=== PATIENT | female | born 1945 | race Caucasian/White ===

== ENCOUNTER 2024-04-17 10:04 | Emergency (ER) | payer MEDICARE, SELFPAY ==
--- NOTE | ~2024-04-17 | CT_ITS ---
EXAMINATION: CT head/brain wo IV con (accession [id number]), CT cervical spine wo IV con (accession [id number]) INDICATION INFORMATION: Fall, +head strike COMPARISON: None TECHNIQUE: Separate noncontrast CT examinations of the head and cervical spine were performed. Coronal and sagittal reformats were obtained at the acquisition workstation. DLP: 833 mGy-cm FINDINGS: HEAD: There is no evidence of acute intracranial hemorrhage or edematous large vessel territorial infarction. No abnormal mass effect or midline shift is seen. Dove to white matter differentiation is well preserved. No abnormal extra-axial fluid collections are identified. Commensurate prominence of the ventricles and sulci is compatible with generalized parenchymal volume loss. There is patchy periventricular and subcortical white matter hypoattenuation, most likely representing microangiopathic disease. Frontal soft tissue swelling and scalp hematoma. No acute calvarial fracture.. Paranasal sinuses and mastoid air cells are well-aerated. . CERVICAL SPINE: No evidence of acute fracture or traumatic subluxation of the cervical spine. Vertebral body heights and intervertebral disc spaces are maintained. The atlantoaxial and atlantooccipital articulations are intact. No prevertebral soft tissue swelling. The visualized lung apices are clear. CT/CT head/brain wo IV con IMPRESSION: No CT evidence of acute intracranial hemorrhage or edematous territorial infarction. Soft tissue swelling and scalp hematoma in the frontal region. No CT evidence of acute cervical spine fracture or malalignment. Electronically signed by: Karthik Kwok MD 04/17/2024 01:15 PM JOSE
--- NOTE | ~2024-04-17 | XR_ITS ---
EXAMINATION: XR ANKLE, RIGHT CLINICAL INFORMATION: fall twisted ankle COMPARISON: None available. TECHNIQUE: AP, lateral, and mortise views of the right ankle. FINDINGS: No fracture. Alignment is anatomic. No erosions. Joint spaces are maintained. Mild soft tissue swelling overlying the lateral malleolus. XR/XR ankle RT min 3V IMPRESSION: Mild soft tissue swelling overlying the lateral malleolus. No acute fractures. Electronically signed by: Cinthya Barrera MD 04/17/2024 01:29 PM EST NABIL
--- NOTE | ~2024-04-17 | CT_ITS ---
EXAMINATION: CT head/brain wo IV con (accession [id number]), CT cervical spine wo IV con (accession [id number]) INDICATION INFORMATION: Fall, +head strike COMPARISON: None TECHNIQUE: Separate noncontrast CT examinations of the head and cervical spine were performed. Coronal and sagittal reformats were obtained at the acquisition workstation. DLP: 833 mGy-cm FINDINGS: HEAD: There is no evidence of acute intracranial hemorrhage or edematous large vessel territorial infarction. No abnormal mass effect or midline shift is seen. Dove to white matter differentiation is well preserved. No abnormal extra-axial fluid collections are identified. Commensurate prominence of the ventricles and sulci is compatible with generalized parenchymal volume loss. There is patchy periventricular and subcortical white matter hypoattenuation, most likely representing microangiopathic disease. Frontal soft tissue swelling and scalp hematoma. No acute calvarial fracture.. Paranasal sinuses and mastoid air cells are well-aerated. . CERVICAL SPINE: No evidence of acute fracture or traumatic subluxation of the cervical spine. Vertebral body heights and intervertebral disc spaces are maintained. The atlantoaxial and atlantooccipital articulations are intact. No prevertebral soft tissue swelling. The visualized lung apices are clear. CT/CT cervical spine wo IV con IMPRESSION: No CT evidence of acute intracranial hemorrhage or edematous territorial infarction. Soft tissue swelling and scalp hematoma in the frontal region. No CT evidence of acute cervical spine fracture or malalignment. Electronically signed by: Karthik Kwok MD 04/17/2024 01:15 PM JOSE
--- NOTE | ~2024-04-17 | XR_ITS ---
EXAMINATION: XR KNEE, RIGHT CLINICAL INFORMATION: Fall COMPARISON: None available. TECHNIQUE: Four views of the right knee. FINDINGS: No fracture or joint effusion. Alignment is anatomic. Mild medial compartment joint space narrowing. No abnormal soft tissue calcification. XR/XR knee RT 4V IMPRESSION: Minimal degenerative disease. Electronically signed by: Cinthya Barrera MD 04/17/2024 01:30 PM EST
[2024-04-17 10:14] VITALS: BP 167/72; BP 170/100; PULSE 100; PULSE 109; RESP 18; TEMP 36.6; O2SAT 18; O2SAT 97; BMI 25.2
[2024-04-17 10:22] VITALS: BP 167/72; PULSE 100; RESP 18; TEMP 36.6; O2SAT 97
--- NOTE | 2024-04-17 10:36 | ED_ITS ---
HPI - Fall General Chief Complaint: Fall Stated Complaint: fall Time Seen by Provider: 04/17/24 10:10 Source: patient, EMS, RN notes reviewed and old records reviewed Mode of arrival: EMS History of Present Illness ED Provider: Inez Jefferson PA-C HPI Narrative: 78-year-old female with no significant past medical history presenting to the ED complaining of right knee/ankle pain and head injury s/p mechanical trip and fall in the basement [employer]. Patient states she was switching over laundry when tripped over a cable/cord and face planted cement floor. Denies anticoagulation use or LOC. Denies symptoms prior to fall. States landed on right knee and twisted ankle. Was minimally ambulatory after incident with pivot with EMS. Denies neck/back pain, CP/SOB, abdominal pain, nausea/vomiting Related Data Allergies Allergy/AdvReac Type Severity Reaction Status Date / Time amoxicillin Allergy Rash Verified 04/17/24 10:20 Review of Systems Review of Systems: Yes all other systems are reviewed and are negative Constitutional: Constitutional: Reports as per HPI Neurologic: Denies Abnormal speech present FOR[facility] Past Medical History Attestation statement: The following information was validated with the patient. Source: old records reviewed Social History Social History Alcohol intake: never Smoked in Last 30 Days: No Use of substances other than those prescribed or required for medical reasons: No Advance Directives: No Advance Directives Information Provided: Yes Do you have a plan to hurt others: No Plan Physical Exam Vital Signs: Vital Signs: Last Vital Signs Temp 97.8 F 04/17/24 10:22 Pulse 100 04/17/24 10:22 Resp 18 04/17/24 10:22 BP 167/72 H 04/17/24 10:22 Pulse Ox 97 04/17/24 10:22 O2 Del Method Room Air 04/17/24 10:22 BMI result Body Mass Index 25.2 Const: General: cooperative, healthy appearing and no acute distress Orientation/consciousness: patient oriented x3 Limitations: no limitations HEENT: Other: + hematoma noted to right forehead. Sup erficial abrasion to nasal bridge with mild nasal swelling. No epistaxis or septal hematoma Head: Yes normal to inspection, Yes atraumatic, No Solo's sign and No raccoon eyes Ears: hearing grossly normal bilaterally General nose exam: Normal external nose present Face and sinus: Yes normal facial exam Mouth: Normal oral and palatal mucosa present and no drooling Throat: Yes posterior oropharynx normal Eyes: General: appearance normal, both eyes and all related structures P upils: Equal, round and reactive pupils present EOM: EOMs intact bilaterally Neck: Other: C-collar in place Neck: Yes normal visual inspection and Yes no meningeal signs Resp: Effort & Inspection: normal respiratory effort and no respiratory distress Auscultation: clear to auscultation bilaterally Cardio: Rate: regular rate Heart sounds: S1 normal heart sound present and S2 normal heart sound present GI: Inspection: Yes normal to inspection Palpation (GI): Soft to palpation, nontender, no guarding and not rigid Back/Spine/Pelvis: Other: No midline cervical/thoracic/lumbar spinous tenderness/step-off or deformity Skin: Rashes: no rashes Wounds: no wounds Neuro: General: patient oriented x3, tone normal, moves all extremities, no meningeal signs, no focal motor deficits and CN's II-XI intact bilaterally Cranial nerves: Yes CN's II-XII intact bilaterally, Yes Equal, round and reactive pupils present and Yes Bilaterally intact EOM present Cognition (Neuro): normal cognition Speech: No Abnormal speech present Motor exam (neuro): 5/5 motor strength present throughout Extrem: Other: Right knee with mild swelling and ecchymosis. Nontender. Full range of motion intact. Right ankle without appreciable swelling or tenderness. NV intact distally Course Course Course Narrative: 1320--CT head/brain wo IV con/CT cervical spine wo IV con IMPRESSION: No CT evidence of acute intracranial hemorrhage or edematous territorial infarction. Soft tissue swelling and scalp hematoma in the frontal region. No CT evidence of acute cervical spine fracture or malalignment. 1340--XR knee RT 4V IMPRESSION: Minimal degenerative disease. XR ankle RT min 3V IMPRESSION: Mild soft tissue swelling overlying the lateral malleolus. No acute fractures. > Ari wrap applied for comfort and stability. Will perform ambulation trial in the ED >> patient ambulated in the ED with assistance, guarded gait. States she has a walker in the car and would like to go home. Not interested in PT/case management. Results discussed with patient including worrisome signs and symptoms and strict return precautions, and when to return to the emergency department. They verbalized understanding and feel safe for discharge at this time. Medical Decision Making Medical Decision Making MDM Narrative: 78-year-old female with no significant past medical history presenting to the ED complaining of right knee/ankle pain and head injury s/p mechanical trip and fall in the basement [employer]. On exam vital signs stable, NAD, nontoxic appearing, physical exam as noted above without midline spinous tenderness. C-collar in place. Hematoma noted to forehead with nasal swelling/ecchymosis. Right knee with mild swelling/ecchymosis. Concern for fractures vs ICH vs strain/sprain Plan: Head/C-spine CT, x-rays, re-evaluate Please refer to course for remaining clinical decision making, interpretation of labs/imaging results, and discussions with consultants and/or family members. Differential Diagnosis Differential Diagnoses: The differential diagnosis associated with the presentat ion includes As above Admission/Observation Consideration of admission/observation: Escalation of care including admission/observation considered Lab Data MDM Lab Attestation statement: I reviewed the patient's lab results. Independent Interpretation I performed an independent interpretation of an: CT Scan Radiology Impression Discussion of test interpretation with radiology: I have reviewed the radiologist's reading. Independent Historian Clinical information obtained from an independent historian. History obtained from or confirmed by: Spouse and EMS External Record Review External record reviewed: Inpatient record, Office record, Outpatient record, Prior outpatient labs, Prior outpatient radiology, Primary care record and Outside ED record Tests considered The following testing was considered but not selected: As above Prescription Management I considered prescription management with: Other Social Determinants Patient?s care significantly limited by Social Determinants of Health including: Other Social Determinant of Health Discharge Plan Discharge Clinical Impression: Ankle sprain, Fall, Scalp hematoma Patient Disposition: Home, Self-Care Instructions: Ankle Sprain (DC), Scalp Contusion in Adults (ED), Fall Prevention (ED) Additional Instructions: Your ankle x-ray shows soft tissue swelling, you likely sprained her ankle Wear Ari wrap for comfort and compression Ice and elevate The scan of your head shows soft tissue swelling of your scalp and hematoma. No fractures or intracranial bleeding. Please have close follow-up with her doctor If you develop constant worsening headache, weakness, vision change or loss, nausea/vomiting return to the ED immediately Referrals: [facility] [Provider Group] Serg Muniz [Physician] - Ivana Gonzalez MD [Primary Care Provider] - 5 days Print Language: Greek
--- NOTE | 2024-04-17 11:23 | PC.NURSE ---
Patient arrived via EMS from home for a recent fall after she tripped over a cord. Hematoma noted to forehead and small abrasion/bruising noted to nose. Patient denies any loss of consciousness when she fell, alert and oriented. Patient states tenderness/stiffness to right ankle, otherwise denies pain elsewhere. C-Collor in place. X-ray and CT results pending.
[2024-04-17 13:52] VITALS: BP 165/75; PULSE 93; RESP 16; TEMP 36.4; O2SAT 95
--- NOTE | 2024-04-17 13:55 | PC.NURSE ---
Ari wrap applied to patient right ankle for ambulation trial. Patient able to ambulate but feels like she will pitch forward when taking a step. Stating she feels safe to go home and wants to go home. States has a walker in the trunk of the car and will be fine. Provider notified
[2024-04-17 14:01] VITALS: BP 165/75; PULSE 93; RESP 18; TEMP 36.4; O2SAT 98
== END 2024-04-17 14:06 | disposition home or self-care (01) ==
PROVIDERS: Emergency Provider Emergency Medicine; PCP Internal Medicine
DX: S00.03XA Contusion of scalp, initial encounter (principal); S93.401A Sprain of unspecified ligament of right ankle, initial encounter; S00.31XA Abrasion of nose, initial encounter; W01.198A Fall on same level from slipping, tripping and stumbling with subsequent striking against other object, initial encounter; M25.561 Pain in right knee; Y93.E2 Activity, laundry; Y92.028 Other place in mobile home as the place of occurrence of the external cause; Y99.9 Unspecified external cause status
CPT/HCPCS: 70450; 72125; 73564; 73610; 99284